=== PATIENT | female | born 2000 | race American Indian/Alaskan Native ===

== ENCOUNTER 2022-02-15 23:27 | Emergency (ER) | payer MEDICAID, SELFPAY ==
[2022-02-15 23:37] VITALS: BP 147/78; PULSE 94; RESP 20; TEMP 36.4; O2SAT 98; BMI 48.2
--- NOTE | 2022-02-15 23:41 | ED.ABDPAIN ---
HPI - Abdominal Pain General Chief Complaint: Abdominal Pain Stated Complaint: abd pain x2 days Time Seen by Provider: 02/15/22 23:32 Source: patient Mode of arrival: Ambulatory History of Present Illness HPI narrative: 21-year-old female nonsmoker without chronic medical problems presents with her mother and a chief complaint of abdominal pain for the past 2 days. She states that she has had some upper abdominal pain over the past few days but denies any provocation, palliation or radiation. Upon more detailed questioning it seems she has had 2 episodes of this pain that lasted approximately 30 minutes at a time. She states that the pain would come and go without any obvious pattern. She denies any fever or chills. She is completely asymptomatic for the duration of her visit. She denies nausea or vomiting. She has no urinary complaints such as dysuria, frequency or urgency. She denies any change in diet or medications. She has had no vaginal bleeding or discharge Related Data Previous Rx's Medication Instructions Recorded azithromycin 250 mg tablet 250 mg PO SEE INSTRUCTIONS #6 tab 12/21/17 (Zithromax) Allergies Allergy/AdvReac Type Severity Reaction Status Date / Time amoxicillin [AMOXICILLIN] Allergy Unknown Unverified 01/13/18 11:49 Review of Systems Review of Systems Narrative: GENERAL: Denies chills, fatigue, malaise, fever, sweats. HEENT: Denies sinus pain, ear pain, sore throat, difficulty swallowing, dizziness. RESPIRATORY: Denies dyspnea, cough, wheezing, hemoptysis, sputum. CARDIOVASCULAR: Denies chest pain, palpitations, orthopnea, edema, GASTROINTESTINAL: See HPI : Denies dysuria, frequency, incontinence, hematuria, urinary retention. MUSCULOSKELETAL: denies weakness, joint pain, or bony pain SKIN: Denies rash, skin lesions, or other NEUROLOGIC: Denies weakness, headache, numbness, change in speech, confusion, seizures, incoordination. PSYCHIATRIC: No concerning psychosocial issues. 12 point review of systems is negative except for those stated above Patient History Social History Smoking Status: Never smoker Smoking Status: Never smoker Substance Use Type: does not use Exam Narrative Exam Narrative: GENERAL: [21 year old patient appears stated age. Well-developed patient, in no obvious distress, resting comfortably HEAD: Atraumatic. Normocephalic. EYES: Pupils equal round and reactive. Extraocular motions intact. No scleral icterus. No injection or drainage. ENT: Nose without bleeding, purulent drainage. Throat without erythema, tonsillar hypertrophy or exudate. Airway patent. NECK: Trachea midline. Non tender CARDIOVASCULAR: Regular rate and rhythm without murmurs, gallops, or rubs. RESPIRATORY: Clear to auscultation. Breath sounds equal bilaterally. No wheezes, rales, or rhonchi. GASTROINTESTINAL: Abdomen soft, non-tender, nondistended. Bowel sounds present in all 4 quadrants EXTREMITIES: No edema or joint tenderness. BACK: Nontender without deformity or crepitance. No flank tenderness. NEURO: AOx3. SKIN: No rash or erythema of visible areas Initial Vital Signs Initial Vital Signs: Vital Signs Temperature 97.6 F 02/15/22 23:37 Pulse Rate 94 H 02/15/22 23:37 Respiratory Rate 20 02/15/22 23:37 Blood Pressure 147/78 H 02/15/22 23:37 Pulse Oximetry 98 02/15/22 23:37 Course Orders Ordered: ED Orders 02/15/22 23:40 EKG-12 Lead Stat 02/15/22 23:48 XR acute abdomen series Stat 02/15/22 23:53 Complete Blood Count AUTO DIFF Stat Comprehensive Metabolic Panel Stat Lipase Stat 02/16/22 00:24 Ictotest Urine Stat Urine Microscopic Stat Vital Signs Vital signs: Vital Signs - 8 hr 02/15/22 23:37 Temperature 97.6 F Pulse Rate 94 H Respiratory Rate 20 Blood Pressure 147/78 H Pulse Oximetry 98 MDM - Abdominal Pain Lab Data Result diagrams: 02/15/22 23:53 02/15/22 23:53 Labs: Lab Results 02/15/22 02/15/22 02/15/22 Range/Units 23:50 23:53 23:53 WBC 9.8 (4.5-11.0) X10^3/uL RBC 4.78 (4.0-5.2) X10^6/uL Hgb 12.2 (12.0-16.0) g/dL Hct 36.9 (36-46) % MCV 77.3 L (80-100) fL MCH 25.6 L (26-34) PG MCHC 33.1 (30-36) % RDW 16.4 H (11.6-14.8) % Plt Count 421 H (150-400) X10^3/uL Neut % (Auto) 51.9 (50-75) % Lymph % (Auto) 37.4 (25-40) % [place] % (Auto) 7.0 (3-14) % Eos % (Auto) 2.7 (2-4) % Baso % (Auto) 1.0 (0-2) % Neut # (Auto) 5100 (7515-9484) /uL Lymph # (Auto) 3700 (3667-5280) /uL [place] # (Auto) 700 (0-900) /uL Eos # (Auto) 300 (0-450) /uL Baso # (Auto) 100 (0-100) /uL Sodium 140 (137-145) mmol/L Potassium 3.7 (3.4-5.1) mmol/L Chloride 109 H (98-107) mmol/L Carbon Dioxide 25 (22-32) mmol/L BUN 15 (7-17) mg/dL Creatinine 0.78 (0.52-1.04) mg/dL Estimated GFR > 60 (>60) mL/min BUN/Creatinine Ratio 19.2 (6-22) Glucose 97 (70-100) mg/dL Calcium 8.6 (8.4-10.2) mg/dL Total Bilirubin 0.3 (0.2-1.3) mg/dL AST 42 H (14-36) IU/L ALT 46 H (<35) IU/L Alkaline Phosphatase 53 (38-126) U/L Total Protein 7.5 (6.3-8.2) g/dL Albumin 4.2 (3.5-5.0) g/dL Globulin 3.3 (1.7-4.1) g/dL Albumin/Globulin Ratio 1.3 (1.0-2.8) Lipase 124 (23-300) U/L Ur Bilirubin Confirm Negative (Negative) Urine RBC None seen (0-5/HPF) Urine WBC None seen (0-5/HPF) Ur Squamous Epith Cells 5-10 /hpf H (0-5/HPF) Urine Bacteria Moderate (10-30) H (None) Urine Mucus 2+ H (Negative) Ur Culture Indicated? Cult not indicated Point of care testing: Point of Care Testing Test Results Negative Urine Dip Bedside Urine Glucose Negative Bedside Urine Bilirubin + 1 Bedside Urine Ketone - Negative Urine Specific [place] 1.030 Bedside Urine Occult Blood - Negative Bedside Urine pH 6.0 Bedside Urine Protein + 30 Bedside Urine Urobilinogen +/- 1mg Bedside Urine Nitrite - Negative Bedside Urine Leukocytes - Negative Esterase Imaging Data Abdominal x-ray: Attestation: I personally reviewed and interpreted this imaging study as follows: My Impression: Nonspecific bowel gas pattern, no obvious bowel obstruction Radiologist's Impression: Ashley Yanes??21??F??2000 ? Allergy/Adv: amoxicillin Close Chest/Abdomen X-ray (Signed) Samuel Goodwin - 02/15/22 Radiology - Historical 11/25/17 [address]?[place] [address] XRay Report Signed Patient: Ashley Yanes MR#: [id number] : 2000 Acct:[id number] Age/Sex: 21 / F Date of Service: 02/15/22 Loc: ED Accession Number: [id number] ?? Procedure: XR acute abdomen series Ordering Provider: Lavon Carrillo D.O. PROCEDURE:? XR ACUTE ABDOMEN SERIES ? INDICATIONS:? upper abdominal pain in waves ? TECHNIQUE:? One view chest and two views of the abdomen were acquired.? ? COMPARISON:? None. ? FINDINGS:? ? Surgical changes and devices:? None.? ? Chest:? Lungs are clear.? Heart size is normal.? No pleural effusions.? No pneumoperitoneum.? ? Abdomen:? Bowel gas pattern is normal.? No suspicious calcifications.? Visualized solid organ contours appear normal.? ? Bones:? No suspicious bony lesions.? ? IMPRESSION:? Nonspecific bowel gas pattern, no subdiaphragmatic free air found. ? ? Dictated by: Samuel Goodwin M.D. on 02/16/2022 at 0:45 ? ? Approved by: Samuel Goodwin M.D. on 02/16/2022 at 0:45 ? MDM Narrative Medical decision making narrative: Multiple etiologies for patient's symptoms considered including: [ Gallbladder, pancreatitis or liver disease considered given mother's report of prior slight elevation in liver enzymes, however even know LFTs are slightly elevated patient has no reproducible pain, no ongoing symptoms at this time. No indication for advanced imaging Colicky description of discomfort and x-ray along with reassuring labs are suggestive of bowel gas and stool burden, perhaps constipation Patient's symptoms are not present during her visit, pain is well controlled, she is tolerating orals. Findings and discharge diagnosis discussed with patient/family followed by verbalization of understanding Return precautions discussed with patient/family whom verbalize understanding. Discharge Plan Departure Patient Disposition: Home Clinical Impression: Abdominal pain Instructions: DI for Abdominal Pain-Adult Activity Restrictions/Additional Instructions: *You have been diagnosed with [episodic generalized abdominal pain. As we discussed your history and physical exam are reassuring. The x-ray shows a fair amount of gas and stool that could be the cause of your pain, there is no evidence of obstruction. *What to do: As your pain may be from gas and stool, please consider a clear liquid diet for the next 24-48 hours as well as some type of [id number] stool softener, a few options are listed below 1. Metamucil - is a bulk forming laxative and adds fiber 2. Colace - softens your stool 3. Dulcolax suppository - stimulates your bowels *Follow up with your primary care provider in 2-3 days, call for appointment *Return to ER if you should have any new, worsening or concerning symptoms such as [fever greater than 101 F, shaking chills, worsening pain, persistent vomiting or other bothersome symptoms] *Drink plenty of water and eat foods high in fiber *Stay as active as you can as this helps move your bowels as well Prescriptions: No Action azithromycin [Zithromax] 250 MG tablet 250 mg PO SEE INSTRUCTIONS Qty: 6 0RF Stand Alone Forms: Work Release Note
--- NOTE | 2022-02-15 23:48 | DI.RAD.S_ITS ---
PROCEDURE: XR ACUTE ABDOMEN SERIES INDICATIONS: upper abdominal pain in waves TECHNIQUE: One view chest and two views of the abdomen were acquired. COMPARISON: None. FINDINGS: Surgical changes and devices: None. Chest: Lungs are clear. Heart size is normal. No pleural effusions. No pneumoperitoneum. Abdomen: Bowel gas pattern is normal. No suspicious calcifications. Visualized solid organ contours appear normal. Bones: No suspicious bony lesions. IMPRESSION: Nonspecific bowel gas pattern, no subdiaphragmatic free air found. Dictated by: Samuel Goodwin M.D. on 02/16/2022 at 0:45 Approved by: Samuel Goodwin M.D. on 02/16/2022 at 0:45
[2022-02-16 00:11] LABS: Add Manual Diff / Slide Review NO; Basophils Absolute Auto 100 /uL (0-100); Eosinophils Absolute Auto 300 /uL (0-450); Eosinophils Percent Auto 2.7 % (2-4); Hematocrit 36.9 % (36-46); Hemoglobin 12.2 g/dL (12.0-16.0); Lymphocytes Absolute Auto 3700 /uL (1100-4500); Lymphocytes Percent Auto 37.4 % (25-40); Mean Corpuscular HGB Conc 33.1 % (30-36); Mean Corpuscular Hemoglobin 25.6 PG (26-34); Mean Corpuscular Volume 77.3 fL (80-100); Monocytes Absolute Auto 700 /uL (0-900); Neutrophils Absolute Auto 5100 /uL (1500-7000); Neutrophils Percent Auto 51.9 % (50-75); Platelet Count 421 X10^3/uL (150-400); Red Blood Cell Count 4.78 X10^6/uL (4.0-5.2); Red Cell Distribution Width 16.4 % (11.6-14.8); White Blood Cell Count 9.8 X10^3/uL (4.5-11.0)
[2022-02-16 00:15] LABS: Alanine Aminotransferase 46 IU/L (<35); Albumin 4.2 g/dL (3.5-5.0); Albumin Globulin Ratio 1.3 (1.0-2.8); Alkaline Phosphatase 53 U/L (38-126); Aspartate Aminotransferase 42 IU/L (14-36); BUN Creatinine Ratio 19.2 (6-22); Bilirubin Total 0.3 mg/dL (0.2-1.3); Blood Urea Nitrogen 15 mg/dL (7-17); Calcium 8.6 mg/dL (8.4-10.2); Carbon Dioxide 25 mmol/L (22-32); Chloride 109 mmol/L (98-107); Estimated Glomerular Filt Rate > 60 mL/min (>60); Globulin 3.3 g/dL (1.7-4.1); Glucose 97 mg/dL (70-100); HEMOLYSIS < 15 (0-50); Lipase 124 U/L (23-300); Potassium 3.7 mmol/L (3.4-5.1); Sodium 140 mmol/L (137-145); Total Protein 7.5 g/dL (6.3-8.2)
[2022-02-16 00:31] LABS: Ictotest Urine Negative (Negative)
[2022-02-16 00:32] LABS: Bacteria Urine Moderate (10-30); Mucus Urine 2+ (Negative); RBC Urine None Seen (0-5/HPF); Squamous Epithelial Cell Urine 5-10 /HPF (0-5/HPF); WBC Urine None Seen (0-5/HPF)
[2022-02-16 00:33] LABS: Culture Indicated Urine Cult Not Indicated
== END 2022-02-16 00:40 | disposition home or self-care (01) ==
PROVIDERS: Emergency Provider Emergency Medicine
DX: R10.9 Unspecified abdominal pain (principal)
CPT/HCPCS: 74022; 80053; 81003; 81015; 81025; 83690; 85025; 93005; 99283

== ENCOUNTER 2023-03-02 20:18 | Emergency (ER) | payer OTHER, MEDICAID, SELFPAY ==
[2023-03-02 20:28] VITALS: BP 155/70; PULSE 88; RESP 16; TEMP 36.8; O2SAT 99; BMI 50.8
[2023-03-02 23:21] VITALS: BP 131/84; PULSE 72; RESP 16; O2SAT 100
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
== END 2023-03-02 23:46 | disposition home or self-care (01) ==
PROVIDERS: Emergency Provider Emergency Medicine
DX: S86.912A Strain of unspecified muscle(s) and tendon(s) at lower leg level, left leg, initial encounter (principal); V89.2XXA Person injured in unspecified motor-vehicle accident, traffic, initial encounter
CPT/HCPCS: 99281